=== PATIENT | female | born 2000 | race Caucasian/White ===

== ENCOUNTER 2020-06-21 19:28 | Inpatient (IN) | payer OTHER ==
[2020-06-21] MEDS ORDERED: RINGERS SOLUTION,LACTATED 1,000 ML IV ONE (19:31)
[2020-06-21] MEDS ORDERED: RINGERS SOLUTION,LACTATED 1,000 ML IV PRN (19:31)
[2020-06-21] MEDS ORDERED: DINOPROSTONE 10 MG VAGINAL INSERT.SR PV PRN (19:43)
[2020-06-21 20:37] LABS: HEMATOCRIT 36.5 % (36.0-47.0); HEMOGLOBIN 12.6 g/dL (12.0-15.5); MEAN CORPUSCULAR HEMOGLOBIN 28.9 pg (27.0-33.4); MEAN CORPUSCULAR HGB CONC 34.4 g/dL (32.0-36.0); MEAN CORPUSCULAR VOLUME 84 fl (80-97); PLATELET COUNT 266 10^3/uL (150-450); RED BLOOD COUNT 4.35 10^6/uL (3.72-5.28); RED CELL DISTRIBUTION WIDTH 13.7 % (11.5-14.0); WHITE BLOOD COUNT 11.6 10^3/uL (4.0-10.5)
[2020-06-21] MEDS ORDERED: OXYTOCIN/0.9 % SODIUM CHLORIDE 30 UNIT/500 ML RTUINJ ONE (20:47)
[2020-06-21] MEDS ORDERED: LIDOCAINE 1% INJ-PF (10 MG/ML) 30 ML SDV ONE (20:47)
[2020-06-21] MEDS ORDERED: MISOPROSTOL 0.2 MG TABLET ONE (20:47)
[2020-06-21] MEDS ORDERED: OXYTOCIN 10 UNIT/ML VIAL ONE (20:47)
[2020-06-21] MEDS ORDERED: DINOPROSTONE 10 MG VAGINAL INSERT.SR ONE (20:48)
[2020-06-21 20:51] LABS: APPEARANCE,URINE CLEAR; BILIRUBIN,URINE NEGATIVE (NEGATIVE); COLOR,URINE STRAW; GLUCOSE, URINE NEGATIVE (NEGATIVE); KETONES,URINE NEGATIVE (NEGATIVE); LEUKOCYTE ESTERASE,URINE MODERATE (NEGATIVE); NITRITE,URINE NEGATIVE (NEGATIVE); PROTEIN,URINE NEGATIVE (NEGATIVE); URINE SPECIFIC GRAVITY 1.006; UROBILINOGEN,URINE NEGATIVE mg/dL (<2.0)
[2020-06-21 21:20] LABS: URINE AMPHETAMINES SCREEN NEGATIVE; URINE BARBITURATES SCREEN NEGATIVE; URINE BENZODIAZEPINES SCREEN NEGATIVE; URINE COCAINE SCREEN NEGATIVE; URINE MARIJUANA (THC) SCREEN NEGATIVE; URINE METHADONE SCREEN NEGATIVE; URINE PHENCYCLIDINE SCREEN NEGATIVE
[2020-06-21] MEDS ORDERED: MAG HYDROX/AL HYDROX/SIMETH SUSP 30 ML UDCUP ONE (22:26)
[2020-06-21] MEDS ORDERED: MAG HYDROX/AL HYDROX/SIMETH SUSP 30 ML UDCUP PO ONE (22:40)
[2020-06-22] MEDS ORDERED: PROMETHAZINE HCL INJ 25 MG/1 ML VIAL ONE (00:57)
[2020-06-22] MEDS ORDERED: NALBUPHINE HCL INJ 10 MG/1 ML AMPULE ONE (00:58)
--- NOTE | 2020-06-22 01:12 | Admission Physical ---
Datetime Report Generated by CPN: 06/22/2020 01:12 CURRENT ADMISSION Chief Complaint: Scheduled Induction of Labor Admit Impression : Term, Intrauterine ; Medical Complication Admit Impression- Other: chronic hypertension Admit Plan: Admit to Unit; Initiate Labor Induction Protocol ALLERGIES Medication Allergies: No Medication Allergies: No Known Allergies (06/21/2020) Latex: No Latex Allergies Food Allergies: none Environmental Allergies: none OBSTETRICAL HISTORY EDC: 06/29/2020 00:00 : 3 Para: 1 : 0 SAB: 1 Livin Cesareans: 0 Gestational Diabetes: No Rh Sensitization: No Incompetent Cervix: No KIRA: No Infertility: No ART Treatment: No Uterine Anomaly: No IUGR: Yes Hx Previous C/S: No Macrosomia: No Hx Loss/Stillborn: No PIH: No Hx : No Placenta Previa/Abruption: No Depression/PP Depression: No PTL/PROM: No Post Hemorrhage: No Current Procedures: Ultrasound Obstetrical History Comments: G1: 2017 SAB in first trimester G2: 2018 38 wks, 4lbs 12oz vag- IUGR G3: Current SEE RECORDS Alcohol: No Marijuana : No Cocaine: No Other Illicit Drugs: No Cigarettes: Never Smoker. [id number] MEDICAL HISTORY Diabetes: No Blood Transfusion: No Pulmonary Disease (Asthma, TB): No Breast Disease: No Hypertension: No Metalizing Supervisor Surgery: No Heart Disease: No Hosp/Surgery: Yes Autoimmune Disorder: No Anesthetic Complications: No Kidney Disease: No Abnormal Pap Smear: No Neuro/Epilepsy: No Psychiatric Disorders: Yes Other Medical Diseases: No Hepatitis/Liver Disease: No Significant Family History: No Varicosities/Phlebitis: No Trauma/Violence : No Thyroid Dysfunction: No Medical History Comments: OCD, anxiety, CHTN, wisdom teeth, tonsils, and left knee acl repair INFECTIOUS HISTORY Gonorrhea: No Genital Herpes: No Chlamydia: No Tuberculosis: No Syphilis: No Hepatitis: No HIV/AIDS Exposure: No Rash or Viral Illness: No HPV: No PHYSICAL EXAM General: Normal HEENT: Normal Neurologic: Normal Thyroid: Normal Heart: Normal Lungs: Normal Breast: Normal Back: Normal Abdomen: Normal Genitourinary Exam: Normal Extremities: Normal DTRs: Normal Pelvic Type: Adequate Vital Signs: Reviewed; Within Normal Limits VAGINAL EXAM Dilatation: 1 Effacement: 50 Station: -3 MEMBRANES Membranes: Intact FETUS A EGA: 39.0 Monitoring: External US FHR- Baseline: 135 Variability: Moderate 6-25bpm Accelerations: 15X15 Decelerations: None FHR Category: Category I Presentation: Vertex Admit Comment: at 39.0 wks EGA for IOL d/t cHTN -Admit to LDR -IVFs and NPO _CEFM and toco -GBS neg -IOL iwth cervidil -hx one , plan PLANS FOR LABOR AND DELIVERY Labor and Delivery: None Pain Management: Medications Feeding Preference: Breast Benefit of Breast Feed Discussed: Yes Circumcision: N/A INFORMED CONSENT Informed Consent Obtained: Vaginal Delivery; Section Delivery; Risks, Benefits and Alternatives Discussed Signature: with User ID: Carmen : with User ID: Carmen
[2020-06-22] MEDS ORDERED: OXYTOCIN/0.9 % SODIUM CHLORIDE 30 UNIT/500 ML RTUINJ IV PRN (01:55)
[2020-06-22] MEDS ORDERED: ACETAMINOPHEN 325 MG TABLET PO PRN (01:55)
[2020-06-22] MEDS ORDERED: PSEUDOEPHEDRINE HCL 30 MG TABLET PO PRN (01:55)
[2020-06-22] MEDS ORDERED: GLYCERIN/WITCH HAZEL LEAF 1 EACH MED..WIPE TP PRN (01:55)
[2020-06-22] MEDS ORDERED: DIPH/PERTUSS(ACELL)/TETANUS VAC/PF 0.5 ML SYR (>=10YO) IM PRN (01:55)
[2020-06-22] MEDS ORDERED: DIPHENHYDRAMINE HCL 25 MG CAPSULE PO PRN (01:55)
[2020-06-22] MEDS ORDERED: ACETAMINOPHEN WITH CODEINE #3 TABLET PO PRN ×2 (01:55)
[2020-06-22] MEDS ORDERED: NA PHOS,M-B/NA PHOS,DI-BA (ADULT) 133 ML ENEMA PR PRN (01:55)
[2020-06-22] MEDS ORDERED: MAGNESIUM HYDROXIDE SUSP 30 ML UDCUP PO PRN (01:55)
[2020-06-22] MEDS ORDERED: BENZOCAINE/MENTHOL AEROSOL SPRAY 56 ML TOP PRN (01:55)
[2020-06-22] MEDS ORDERED: PROMETHAZINE HCL 25 MG TABLET PO PRN (01:55)
[2020-06-22] MEDS ORDERED: DIBUCAINE 1% OINTMENT 28 GM TP PRN (01:55)
[2020-06-22] MEDS ORDERED: PROMETHAZINE HCL INJ 25 MG/1 ML VIAL IV PRN (01:55)
[2020-06-22] MEDS ORDERED: ACETAMINOPHEN 650 MG SUPP.RECT PR PRN (01:55)
[2020-06-22] MEDS ORDERED: PROMETHAZINE HCL 25 MG SUPP.RECT PR PRN (01:55)
[2020-06-22] MEDS ORDERED: MEASLES,MUMPS&RUBELLA VACC/PF 0.5 ML VIAL SUBCUT PRN (01:55)
[2020-06-22] MEDS ORDERED: ZOLPIDEM TARTRATE 5 MG TABLET PO PRN (01:55)
--- NOTE | 2020-06-22 03:06 | Warning Signs in Babies ---
VOD Warning Signs Datetime Report Generated by [facility]: 06/22/2020 03:06 VOD#[id number] -Warning Signs in Babies: Viewed with Parent(s)/Family (06/21/2020 18:31:Stephanie Agudelo RN)
--- NOTE | 2020-06-22 03:06 | Birth Certificate Data ---
Cert Data Datetime Report Generated by CPN: 06/22/2020 03:06 CERTIFICATE DATA Delivery Provider: Amy Chen MD (06/21/2020 18:31:Radha Mercado RN) 47a. Care: Yes (06/21/2020 18:31:Eleonora Delarosa RN) 47b. Date of First Visit: 12/17/2019 00:00 (06/21/2020 18:31:Eleonora Delarosa RN) 47c. Date of Last Visit: 06/17/2020 00:00 (06/21/2020 18:31:Eleonora Delarosa RN) 47d. Number of Visits: 11 (06/21/2020 18:31:Eleonora Delarosa RN) 48a. Number of Prev Live Births: 1 (06/21/2020 18:31:Stephanie Agudelo RN) 48b. Now Livin (06/21/2020 18:31:Stephanie Agudelo RN) 48c. Live Births Now : 0 (06/21/2020 18:31:QS system process) 48e. Losses: 1 (06/21/2020 18:31:Stephanie Agudelo RN) RISK FACTORS IN THIS 49a. Diabetes: No (06/21/2020 18:31:Stephanie Agudelo RN) 49b. Hypertension: No (06/21/2020 18:31:Stephanie Agudelo RN) Type of Hypertension: Chronic (06/21/2020 18:31:Stephanie Agudelo RN) 49c. Previous Births: 0 (06/21/2020 18:31:Stephanie Agudelo RN) 49d. Stillborns: No (06/21/2020 18:31:Stephanie Agudelo RN) 49d. IUGR: Yes (06/21/2020 18:31:Stephanie Agudelo RN) 49e. Infertility Treatment: No (06/21/2020 18:31:Stephanie Agudelo RN) 49f. Previous Cesareans: 0 (06/21/2020 18:31:Stephanie Agudelo RN) Mother's Height 50b. Height Inches: 61 (06/21/2020 20:33:QS system process) Mother's Weight 51a. Pre- Weight (lbs): 168 (06/21/2020 18:31:Eleonora Delarosa RN) 51b. Weight at Delivery (lbs): 209 (06/21/2020 20:33:QS system process) 52. Dt Last Normal Menses Began: 09/23/2019 00:00 (06/21/2020 18:31:Eleonora Delarosa RN) Infections Present/Treated 53a. Gonorrhea: No (06/21/2020 18:31:Stephanie Agudelo RN) Results this Hospital Visit : Negative (06/21/2020 18:31:Eleonora Delarosa RN) 53b. Syphilis: No (06/21/2020 18:31:Stephanie Agudelo RN) 53c. Chlamydia: No (06/21/2020 18:31:Stephanie Agudelo RN) Results this Hospital Visit: Negative (06/21/2020 18:31:Eleonora Delarosa RN) 53d. Hepatitis B: No (06/21/2020 18:31:Stephanie Agudelo RN) Results this Hospital Visit: Negative (06/21/2020 18:31:Eleonora Delarosa RN) 53e. Hepatitis C: Negative (06/21/2020 18:31:Stephanie Agudelo RN) 53h. Mother Tested for HBsAG: Yes (06/21/2020 18:31:Eleonora Delarosa RN) 53i. Date Tested: 12/17/2019 00:00 (06/21/2020 18:31:Eleonora Delarosa RN) 53j. Test Result: Negative (06/21/2020 18:31:Eleonora Delarosa RN) Obstetric Procedures 54a, b, c. Obstetric Procedures: Ultrasound (06/21/2020 18:31:Stephanie Agudelo RN) Cigarette Smoking Cigarette Smoking: Never Smoker. [id number] (06/21/2020 18:31:Stephanie Agudelo RN) 55a. 3 Months Before Preg - Ci (06/21/2020 18:31:Stephanie Agudelo RN) 55a. Packs: 0 (06/21/2020 18:31:Stephanie Agudelo RN) 55b. 1st Trimester of Preg- Ci (06/21/2020 18:31:Stephanie Agudelo RN) 55b. Packs: 0 (06/21/2020 18:31:Stephanie Agudelo RN) 55c. 2nd Trimester of Preg- Ci (06/21/2020 18:31:Stephanie Agudelo RN) 55c. Packs: 0 (06/21/2020 18:31:Stephanie Agudelo RN) 55d. 3rd Trimester of Preg- Ci (06/21/2020 18:31:Stephanie Agudelo RN) 55d. Packs: 0 (06/21/2020 18:31:Stephanie Agudelo RN) Onset of Labor 56a. PROM >12 Hrs: 0.13 (06/21/2020 18:31:QS system process) 56b. Precipitous Labor <3 Hrs: 4 (06/21/2020 18:31:QS system process) 56c. Prolonged Labor > 20 Hrs: 4 (06/21/2020 18:31:QS system process) 57a. Induction of Labor: N/A (06/21/2020 18:31:Radha Mercado RN) 57a. Induction of Labor: Cervidil (06/21/2020 20:51:Stephanie Agudelo RN) 57c. Non-Vertex Presentation A: Vertex (06/21/2020 18:31:Radha Mercado RN) 57d. Steroids - Lung Mat: None (06/21/2020 18:31:Radha Mercado RN) 57d. Steroids - Lung Mat: Not Applicable (06/21/2020 18:31:Radha Mercado RN) 57f. Mat [place] or Temp >100.4: 98.2 (06/21/2020 18:31:Radha Mercado RN) 57g. Moderate/Heavy Meconium: Clear (06/21/2020 18:31:Radha Mercado RN) 57h. Intolerance of Labor: N/A (06/21/2020 18:31:Radha Mercado RN) : N/A (06/21/2020 18:31:Don Moya RN) 57i. Epidural/Spinal Anesthesia: None (06/21/2020 18:31:Radha Mercado RN) Method of Delivery 58a. Forceps - Unsuccessful A: N/A (06/21/2020 18:31:Radha Mercado RN) 58b. Vacuum - Unsuccessful A: N/A (06/21/2020 18:31:Radha Mercado RN) 58c. Presentation at 58c. Presentation at - A : Vertex (06/21/2020 18:31:Radha Mercado RN) 58c. Presentation at - A : N/A (06/21/2020 18:31:Radha Mercado RN) 58c. Presentation at - A : Cephalic (06/21/2020 18:31:Radha Mercado RN) Final Route and Method of Del 58d. Baby A Route/Delivery: Vaginal (06/21/2020 18:31:Radha Mercado RN) 58e. Trial of Labor Attempted: No (06/21/2020 18:31:Radha Mercado RN) 58e. Trial of Labor Attempted A: N/A (06/21/2020 18:31:Radha Mercado RN) 58e. Trial of Labor Attempted B: N/A (06/21/2020 18:31:Radha Mercado, RN) Maternal Morbidity 59b. 3rd or 4th Degree Lacs: Perineal (06/21/2020 18:31:Stephanie Agudelo RN) 59b. 3rd or 4th Degree Lacs: Second Degree (06/21/2020 18:31:Stephanie Agudelo, RN) Birthweight Baby A: 2860 (06/21/2020 18:31:Angela Ferreira, RN) 60a. Pounds : 6 (06/21/2020 18:31:QS system process) 60b. Ounces: 5 (06/21/2020 18:31:QS system process) 61. GA at Delivery Baby A: 39.0 (06/21/2020 18:31:Radha Mercado RN) : Full Term- 39- 40.6 Weeks (06/21/2020 18:31:QS system process) 62a. 5 Minute Baby A: 9 (06/21/2020 18:31:QS system process)
--- NOTE | 2020-06-22 03:06 | Delivery Summary ---
Del Sum A-C Datetime Report Generated by CPN: 06/22/2020 03:06 DELIVERY PERSONNEL DELIVERY PERSONNEL: [id number] Delivery Doctor:: Amy Chen MD Labor and Delivery Nurse:: Stephanie Agudelo RN2nd grade teacher Nurse:: Radha Mercado RN Nursery Nurse:: ILDEFONSO [place] Test Driver/BOILER TESTER: Seema Raymond, ST MATERNAL INFORMATION Delivery Anesthesia: None Medications After Delivery: Pitocin Bolus-Please Comment; Pitocin 30 Units in 500ml NS/D5W Delivery QBL: 300 Maternal Complications: None Provider Comments: Called to patients room as she was complete and plus 3 station. Patient pushed through two contractions and a viable female was delivered. After the head delivered a nuchal x1 was noted, loose and reduced. Shoulders and rest of body followed easily. Cord clamping delayed for 30 seconds as was vigorous. Once cord cut, placed skin to skin. BOth Mother and stable. LABOR SUMMARY EDC: 06/29/2020 00:00 No. Babies in Womb: 1 Attempted: No Labor Anesthesia: None LABOR INFORMATION Reason for Induction: Chronic Primary/Essential HTN Onset of Labor: 06/21/2020 20:51 Complete Dilatation: 06/22/2020 01:13 Cervical Ripening Agents: Cervidil Oxytocin: N/A Group B Beta Strep: negative Antibiotics # of Doses: 0 Name of Antibiotic Given: n/a Steroids Given: None Reason Steroids Not Administered: Not Applicable MEMBRANES Membranes Rupture Method: Artificial Rupture of Membranes: 06/22/2020 01:16 Length of Rupture (hr): 0.13 Amniotic Fluid Color: Clear Amniotic Fluid Amount: Small Amniotic Fluid Odor: Normal STAGES OF LABOR Stage 1 hr: 4 Stage 1 min: 22 Stage 2 hr: 0 Stage 2 min: 11 Stage 3 hr: 0 Stage 3 min: 4 Total Time in Labor hr: 4 Total Time in Labor min: 37 VAGINAL DELIVERY Episiotomy: None Laceration #1: Perineal Laceration Extension #1: Second Degree Laceration Repair: Yes Sponge Count Correct: Yes Sharps Count Correct: Yes CSECTION DELIVERY Primary Indication: N/A Secondary Indication: N/A CSection Incidence: N/A Labor: N/A Elective: N/A CSection Incision: N/A BABY A INFORMATION Infant Delivery Date/Time: 06/22/2020 01:24 Method of Delivery: Vaginal Nurse Controlled Delivery: No Born in Route : No : N/A Forceps: N/A Vacuum Extraction: N/A Shoulder Dystocia : No PRESENTATION/POSITION BABY A Presentation: Cephalic Cephalic Presentation: Vertex Vertex Position: Right Occipital Anterior Breech Presentation: N/A PLACENTA INFORMATION BABY A Placenta Delivery Time : 06/22/2020 01:28 Placenta Method of Delivery: Spontaneous Placenta Status: Delivered SCORES BABY A Heart Rate 1 min: >100 bpm Resp Effort 1 min: Slow, Irregular Reflex Irritability 1 min: Cough or Sneeze or Pulls Away Muscle Tone 1 min: Active Motion Color 1 min: Body [place], Extremities Blue Resuscitation Effort 1 min: Tactile Stimulation SCORE 1 MIN: 8 Heart Rate 5 min: >100 bpm Resp Effort 5 min: [place] Reflex Irritability 5 min: Cough or Sneeze or Pulls Away Muscle Tone 5 min: Active Motion Color 5 min: Body [place], Extremities Blue Resuscitation Effort 5 min: Tactile Stimulation SCORE 5 MIN: 9 INFORMATION BABY A Gestational Age at Delivery: 39.0 Gestational Status: Full Term- 39- 40.6 Weeks Infant Outcome : Liveborn Condition : Stable Sex: Female IDENTIFICATION BABY A Infant Verification Date/Time: 06/22/2020 01:33 ID Band Number: [id number] Mother's Name Verified: Yes Infant RN Verifying Infant: SSean Smith, RN Additional Verifying Personnel: TSean Moya, RN WEIGHT/LENGTH BABY A Infant Birthweight (gm): 2860 Weight (lb): 6 Weight (oz): 5 Length (in): 19.00 Infant Length (cm): 48.26 CORD INFORMATION BABY A No. Cord Vessels: 3 Nuchal Cord : Around Neck x1, Loose Cord Blood Taken: Yes-For Storage (Mom's Blood type +) (Annotations: Data stored by [facility] on behalf of user) Suction: None ASSESSMENT BABY A Infant Complications: None Physical Findings at Delivery: Within Normal Limits Respirations: Appears Normal Skin to Skin: Yes Skin to Skin Time (min): 60 Care By: Imelda,RNC Transferred To: Remains with Mother BABY B INFORMATION : N/A SIGNATURES Signature: with User ID: Carolanne : with User ID: Carmen
[2020-06-22] MEDS: IBUPROFEN 800 MG TABLET PO SCH ×3 (04:14→17:43)
[2020-06-22] MEDS: SENNOSIDES/DOCUSATE 8.6-50 MG 1 EACH TABLET PO SCH (09:16)
[2020-06-22] MEDS: FERROUS SULFATE 325 MG TABLET PO SCH ×2 (09:16→17:43)
[2020-06-22] MEDS: PRENATAL VITAMIN W DHA CAPSULE PO SCH (09:16)
[2020-06-22] MEDS: FAMOTIDINE 20 MG TABLET PO SCH ×2 (09:16→21:18)
[2020-06-22] MEDS: DOCUSATE SODIUM 100 MG CAPSULE PO SCH ×2 (09:16→17:43)
[2020-06-23] MEDS: IBUPROFEN 800 MG TABLET PO SCH ×2 (01:53→09:13)
[2020-06-23 06:36] LABS: HEMOGLOBIN 11.8 g/dL (12.0-15.5); MEAN CORPUSCULAR HEMOGLOBIN 28.6 pg (27.0-33.4); MEAN CORPUSCULAR HGB CONC 33.6 g/dL (32.0-36.0); MEAN CORPUSCULAR VOLUME 85 fl (80-97); PLATELET COUNT 233 10^3/uL (150-450); RED BLOOD COUNT 4.11 10^6/uL (3.72-5.28); RED CELL DISTRIBUTION WIDTH 13.8 % (11.5-14.0); WHITE BLOOD COUNT 9.9 10^3/uL (4.0-10.5)
[2020-06-23 08:12] VITALS: BP 118/75
[2020-06-23] MEDS: FERROUS SULFATE 325 MG TABLET PO SCH (09:13)
[2020-06-23] MEDS: FAMOTIDINE 20 MG TABLET PO SCH (09:13)
[2020-06-23] MEDS: SENNOSIDES/DOCUSATE 8.6-50 MG 1 EACH TABLET PO SCH (09:13)
[2020-06-23] MEDS: PRENATAL VITAMIN W DHA CAPSULE PO SCH (09:13)
[2020-06-23] MEDS: DOCUSATE SODIUM 100 MG CAPSULE PO SCH (09:13)
--- NOTE | 2020-06-23 10:53 | PDOC DISCHARGE SUMMARY ---
Impression - Admit/DC Date/PCP Admission Date/Primary Care Provider: 06/21/20 19:28 Discharge Date: 06/23/20 - PP Day #1, pt is requesting to go home today. - Discharge Diagnosis (1) (normal spontaneous vaginal delivery) Is this a current diagnosis for this admission?: Yes (2) Normal course Is this a current diagnosis for this admission?: Yes - Additional Information Resuscitation Status: Full Code Discharge Diet: Regular Discharge Activity: Balance Activity w/Rest, No Lifting Over 10 Pounds, Pelvic Rest, No tub bath Referrals: [facility] [Provider Group] (Please call [facility] for a 4 week f/u. ) Prescriptions: Ibuprofen [Motrin 800 mg Tablet] 800 mg PO Q8H #60 tablet Home Medications: Vitamin [-U Multiple Vitamin Capsule] 1 tab PO DAILY 06/21/20 Ibuprofen [Motrin 800 mg Tablet] 800 mg PO Q8H #60 tablet 06/23/20 HPI Reason(s) for Admission: Induction of Labor Complication(s): Laceration-Perineal Laceration-Degree: 2nd Hospital Course 59. Maternal Morbidity (serious complications experinced by the mother ass ociated with labor and delivery: None of the above Results Laboratory Results: WBC 9.9 10^3/uL (4.0-10.5) 06/23/20 06:20 RBC 4.11 10^6/uL (3.72-5.28) 06/23/20 06:20 Hgb 11.8 g/dL (12.0-15.5) L 06/23/20 06:20 Hct 35.0 % (36.0-47.0) L 06/23/20 06:20 MCV 85 fl (80-97) 06/23/20 06:20 MCH 28.6 pg (27.0-33.4) 06/23/20 06:20 MCHC 33.6 g/dL (32.0-36.0) 06/23/20 06:20 RDW 13.8 % (11.5-14.0) 06/23/20 06:20 Plt Count 233 10^3/uL (150-450) 06/23/20 06:20 Urine Color STRAW 06/21/20 19:45 Urine Appearance CLEAR 06/21/20 19:45 Urine pH 6.0 (5.0-9.0) 06/21/20 19:45 Ur Specific [place] 1.006 06/21/20 19:45 Urine Protein NEGATIVE mg/dL (NEGATIVE) 06/21/20 19:45 Urine Glucose (UA) NEGATIVE mg/dL (NEGATIVE) 06/21/20 19:45 Urine Ketones NEGATIVE mg/dL (NEGATIVE) 06/21/20 19:45 Urine Blood NEGATIVE (NEGATIVE) 06/21/20 19:45 Urine Nitrite NEGATIVE (NEGATIVE) 06/21/20 19:45 Urine Bilirubin NEGATIVE (NEGATIVE) 06/21/20 19:45 Urine Urobilinogen NEGATIVE mg/dL (<2.0) 06/21/20 19:45 Ur Leukocyte Esterase MODERATE (NEGATIVE) H 06/21/20 19:45 Urine WBC (Auto) 6 /HPF 06/21/20 19:45 Urine RBC (Auto) 2 /HPF 06/21/20 19:45 Urine Bacteria (Auto) TRACE /HPF 06/21/20 19:45 Squamous Epi Cells Auto 1 /HPF 06/21/20 19:45 Urine Ascorbic Acid NEGATIVE (NEGATIVE) 06/21/20 19:45 Urine Opiates Screen NEGATIVE 06/21/20 19:45 Urine Methadone Screen NEGATIVE 06/21/20 19:45 Ur Barbiturates Screen NEGATIVE 06/21/20 19:45 Ur Phencyclidine Scrn NEGATIVE 06/21/20 19:45 Ur Amphetamines Screen NEGATIVE 06/21/20 19:45 U Benzodiazepines Scrn NEGATIVE 06/21/20 19:45 Urine Cocaine Screen NEGATIVE 06/21/20 19:45 U Marijuana (THC) Screen NEGATIVE 06/21/20 19:45 RPR NONREACTIVE (NONREACTIVE) 06/21/20 20:10 Blood Type A POSITIVE 06/21/20 20:10 Antibody Screen NEGATIVE 06/21/20 20:10 Plan Plan of Treatment: d/c home, f/up in 4 wks for PP check Time Spent: Less than 30 Minutes
== END 2020-06-23 14:00 | disposition home or self-care (01) | DRG 807 ==
LOC: LR 19:28 → 2S 06-22 03:50
PROVIDERS: ADMIT Obstetrics & Gynecology; ATTEND Obstetrics & Gynecology
PROC: 10E0XZZ Delivery of Products of Conception, External Approach (ICD-10-PCS; principal; 2020-06-22)
PROC: 0KQM0ZZ Repair Perineum Muscle, Open Approach (ICD-10-PCS; 2020-06-22)
DX: O10.02 Pre-existing essential hypertension complicating childbirth (principal); O69.81X0 Labor and delivery complicated by cord around neck, without compression, not applicable or unspecified; O70.1 Second degree perineal laceration during delivery; O99.344 Other mental disorders complicating childbirth; F41.9 Anxiety disorder, unspecified; F42.9 Obsessive-compulsive disorder, unspecified; Z37.0 Single live birth; Z3A.39 39 weeks gestation of pregnancy
CPT/HCPCS: 36415; 80307; 81001; 85027; 86592; 86850; 86900; 86901; J2300; J2550; J2590; J3490